=== PATIENT | male | born 1950 | race Caucasian/White ===

== ENCOUNTER 2016-09-13 08:55 | Inpatient (IN) | payer OTHER ==
[~2016-09-13] VITALS: Ht 182.9 cm; Wt 116.2 kg
--- NOTE | ~2016-09-13 | EKG ---
[place] [address] [facility] [place] [address] ELECTROCARDIOGRAM REPORT Name: GLORIA KRISHNAN MARYJO Room #: 423-1 ADM IN M.R.#: [id number] Admission: 09/13/16 Attend Phys: Shemar Varela Discharge: Date of : 50 Report #: [id number] THIS REPORT FOR: //name// [facility] ED Test Date: 2016-09-13 Test Time: 09:04:33 Pat Name: GLORIA KRISHNAN Department: Room: [facility] Gender: M Rental Clerk: PAYAM : 1950 Requested By: Lisa Adam Order Number: [id number] MD: Antwan Bauman Measurements Intervals [place] Rate: 120 P: 79 IL: 174 QRS: 29 QRSD: 84 T: 204 QT: 328 QTc: 464 Interpretive Statements Sinus tachycardia Multiple ventricular and atrial premature complexes Low voltage, extremity and precordial leads Nonspecific ST and T wave abnormality Compared to ECG 06/03/2011 10:16:38 Ventricular and atrial premature complex(es) now present Nonspecific change in ST and T-wave segments Electronically Signed On 09-16-2016 13:43:32 CDT by Antwan Bauman [email or web address] <ELECTRONICALLY SIGNED> By: Antwan Bauman MD, [facility] 09/16/16 1343 0904 0904 Antwan Bauman MD, FAC /EPI
--- NOTE | ~2016-09-13 | HC ---
[facility] [place] [address] CONSULTATION Name: GLORIA KRISHNAN Room #: 423-1 [facility] IN M.R.#: [id number] Admission: 09/13/16 Attend Phys: Shemar Varela Discharge: 09/19/16 Date of : 50 Report #: [id number] THIS REPORT FOR: //name// CC: Tonia Garcia MD DATE OF SERVICE: 09/13/2016 REFERRING PROVIDER: Shemar Varela MD. REASON FOR CONSULTATION: Pulmonary infiltrates and shortness of breath. CHIEF COMPLAINT: Edema. HISTORY OF PRESENT ILLNESS: Our group was asked to see the patient in consultation while hospitalized at [facility], well known to me from office visits and prior hospital stay. He is a pleasant 65-year-old male with a pulmonary history significant for lung cancer initially diagnosed with adenocarcinoma with a left lower lobe lobectomy. In 2011, he had evidence of recurrence. In 2016, underwent XR and subsequent chemotherapy. Recently, he has been put on Opdivo about 2 months ago. The patient has noted worsening lower extremity edema and also had significant erythema of his lower extremities, some of which has been blistering. The worsening of these symptoms prompted him to come to the emergency department for further evaluation. The patient was noted to have some changes on chest radiograph including left pleural effusions, perhaps some infiltrate in the left lung. He has been without any respiratory complaints other than some exertional dyspnea. Denies any chest pain, cough, sputum production, fever or hemoptysis. Recent CT scan done on September 11 at the [facility] with results pending. He is not really on any pulmonary medications at this time other than p.r.n. albuterol. ALLERGIES: Include LORAZEPAM, IBUPROFEN, GABAPENTIN. PAST MEDICAL HISTORY: 1. 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 2. Non-malignant colon mass, status post resection and hemicolectomy due to leak. 3. History of thyroid cancer resection. 4. Lung cancer as described above. 5. Hyperlipidemia. [facility] [address] [place] [place] [address] CONSULTATION Name: GLORIA KRISHNAN MARYJO Room #: 423-1 DIS IN M.R.#: [id number] Admission: 09/13/16 Attend Phys: Shemar Varela Discharge: 09/19/16 Date of : 50 Report #: [id number] 6. Hypothyroidism. 7. History of coronary artery disease with prior myocardial infarction and stent placement. 8. Mild COPD. OUTPATIENT MEDICATIONS: Include albuterol, aspirin, nortriptyline, Lasix, Klor-Con, Synthroid, multivitamin, vitamin D, Restasis, GenTeal, Refresh, metolazone, MiraLax, Lipitor, albuterol, Keflex, finasteride, Flomax. Of note, the patient recently stopped Lasix and been on torsemide being adjusted by nephrology. SOCIAL HISTORY: The patient is currently , lives with his , ex-smoker, quitting about 2011. No alcohol use. FAMILY HISTORY: Significant for father who of electrocution. Mother had problems with diabetes mellitus and renal failure. REVIEW OF SYSTEMS: CONSTITUTIONAL: No fevers, chills or sweats. ENT: No upper respiratory congestion, rhinorrhea or dysphagia. CARDIOVASCULAR: No history of coronary artery disease, no chest pain or palpitations. GASTROINTESTINAL: No nausea, vomiting or abdominal pain. GENITOURINARY: No dysuria, no frequency. INTEGUMENT: As described in HPI, significant lower extremity erythema and blistering. MUSCULOSKELETAL: Significant lower extremity edema with recent increased diuretics with no effect. PHYSICAL EXAMINATION: VITAL SIGNS: Afebrile, pulse 100 and regular, respiratory rate 18, blood pressure 118/70, oxygen saturation 97% on room air. GENERAL: This is a pleasant elderly male, in no distress. HEENT: Edentulous male, Mallampati 2 airway, no thrush. NECK: Supple, no lymphadenopathy. LUNGS: Markedly diminished on left two-thirds up. Well-healed left thoracotomy scar, no wheezes noted, some left-sided crackles also appreciated. CARDIOVASCULAR: Heart rate was regular. No murmurs noted. ABDOMEN: Obese, soft, nontender, no masses. EXTREMITIES: Right lower extremity had been dressed, at wound site has significant lower extremity edema and erythema. LABORATORY DATA: White blood cell count 14,000, hemoglobin 12, hematocrit 36, platelet count of 297. INR 1.0. Sodium 135, potassium 2.6, chloride 95, bicarbonate 33, BUN 48, creatinine 2.7, glucose 196, alkaline phosphatase 151. [address] [address] CONSULTATION Name: ARIELLAGLORIA MARYJO Room #: 423-1 [facility] IN M.R.#: [id number] Admission: 09/13/16 Attend Phys: Shemar Varela Discharge: 09/19/16 Date of : 50 Report #: [id number] ProBNP 1719. Albumin 2.0. Chest x-ray as described in HPI. Lower extremity venous Dopplers negative for DVT. IMPRESSION: 1. Significant lower extremity edema. 2. Erythema of lower extremities with evidence blistering, not sure if this is a drug reaction related to Opdivo or underlying cellulitis. 3. Large left pleural effusion, some concern for malignant effusion. Recent CT not available, we will obtain. 4. Possible pneumonia with the left sided infiltrate; however, this may also be post-radiation changed. Again, we would like to review old films from [facility]. 5. 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 SUGGESTIONS: 1. Await CT images. 2. Consider left thoracentesis. 3. Continue antibiotics. 4. Ask nephrology to consult and assist with diuretics selections. 5. Await CT images. 6. No strong indication for bronchodilators. We will continue his p.r.n. 7. Await cultures. 8. We will follow with you. Thank you for requesting our suggestions. <ELECTRONICALLY SIGNED> By: Bashir Salinas MD 09/27/16 1133 1830 [id number] Bashir Salinas MD /nt
--- NOTE | ~2016-09-13 | HC ---
[facility] [place] [address] CONSULTATION Name: GLORAI KRISHNAN MARYJO Room #: 423-1 ADM IN M.R.#: [id number] Admission: 09/13/16 Attend Phys: Shemar Varela Discharge: Date of : 50 Report #: [id number] THIS REPORT FOR: //name// CC: Tonia Mcgowan MD [facility] Shemar Garcia MD REASON FOR CONSULTATION: History of lung cancer. 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 He showed a healing change in 1 vertebral body, aortocaval lymph node was slightly large up to 2.8 from 2.3 cm, but another smaller mass that was slightly smaller, all in all a good report. Dr. Oro already talked with Dr. Salinas yesterday. The patient was admitted for increasing shortness of breath, had about a 40-pound weight again in recent times and is now on Lasix drip and appears to be improving. Before this, the patient has not had any fevers or chills, did have the shortness of air, not really a cough precipitated, did have bilateral leg swelling with some slight redness. The patient had no fevers or chills or sweats. No eye or ear troubles. No nausea or vomiting. No urinary difficulties. No blood in his urine or stool. Did have lower extremity swelling with some blistering and erythema. Does also have some slight weakness because that reports mentating well. FAMILY HISTORY: Father from an electrical accident and was electrocuted. Mother had troubles with diabetes and renal failure. SOCIAL HISTORY: He is a retired Marine, originally from [place], lives with his , has I think 3 children here in town, quit smoking in 2011, no alcohol. OUTPATIENT MEDICATIONS: Include albuterol, aspirin, nortriptyline, Lasix, potassium, Synthroid, vitamins including D, eyedrops, metolazone, MiraLax, Lipitor, albuterol, finasteride, Flomax and Keflex. PAST MEDICAL HISTORY: Notable for the lung cancer originally diagnosed in 2011, was stage IIA, had a left lower lobe lobectomy, had 3 cycles of adjuvant cisplatin and Alimta complicated by renal failure. In 08/2015, he had left upper lobe recurrence with some histology, had radiation therapy with Dr. Tyrell Barnes. In 04/2016, he had a PET MRI confirmation recurrence metastatic disease to bone in renal region, began Opdivo. In about 05/2006, he noted that his [address] [address] CONSULTATION Name: ARIELLAGLORIA MARYJO Room #: 423-1 ADM IN M.R.#: [id number] Admission: 09/13/16 Attend Phys: Shemar Varela Discharge: Date of : 50 Report #: [id number] PD-L1 expression was less than 1%. He received his fifth dose of chemotherapy on 08/21/2016 and then he had a recent scan showing stable and slightly improved disease. Also, has a history of interstitial nephritis probably from the cisplatin, had a nonmalignant colon cancer in the past, history of thyroid cancer resected, hyperlipidemia, hypothyroidism, history of coronary artery disease with prior infarct and stent placement, also mild COPD, also history of hernia surgery in 1971 and , right ankle surgery in the past. The thyroid cancer back in 11/2011. Shingles of the right eye in 2013, skin cancer of the nose and neck in 2013, history of colon resection, benign changes 2014. MEDICATIONS: At this time in the hospital currently include cyclosporine ophthalmologically b.i.d., levofloxacin daily, potassium chloride 40 mEq b.i.d., methylprednisolone 40 mg b.i.d., finasteride 5 mg daily, aspirin 81 daily, glimepiride 2 mg with breakfast, pantoprazole 40 daily, levothyroxine 175 mcg daily, vancomycin q. 12, fentanyl p.r.n., spironolactone 50 b.i.d., atorvastatin calcium 20 mg at bedtime, tamsulosin 0.4 mg b.i.d., Lovenox 30 mg at bedtime, insulin on a sliding scale, IV fluids with furosemide drip, zolpidem 5 mg p.r.n., ipratropium and albuterol respiratory therapy q. 4, MiraLax daily, nitroglycerin p.r.n., Zofran p.r.n. PHYSICAL EXAMINATION: GENERAL: The patient appears his stated age. VITAL SIGNS: Current height is 6 feet, which is 182.88 cm, weight 260 pounds 117.9 kilograms. Blood pressure is 126/73, O2 sat 97, respirations 18, pulse 111, temperature 98.2, he has been afebrile. MOOD: The patient is alert and pleasant. NEUROLOGIC: He is moving all extremities. HEENT: Face is symmetrical, cognitive function appears normal. LUNGS: Mostly clear, some slight rhonchi centrally that clear with easy cough. ABDOMEN: Obese. HEART: Regular rate. ABDOMEN: Enlarged lymph nodes in the supraclavicular or cervical region. EXTREMITIES: Have significant edema up to almost the knee with redness, noticed a gauze wrap on the right calf. ASSESSMENT AND PLAN: 1. Nonsmall cell lung cancer, on Opdivo since early May with recent CAT scan showing response, would like to decrease steroids as soon as able as this can interfere with immunologic response. Continue Opdivo as outpatient. 2. Weight gain and peripheral edema, most likely related to hypoalbuminemia and interstitial nephritis. Per Renal, we will continue Lasix drip. 3. Coronary artery disease. Aspirin and other medications. 4. Chronic obstructive pulmonary disease, continue aerosols. 5. Diabetes, continue to use insulin and oral agents. 6. Lipids, continue statins. [address] [address] CONSULTATION Name: SANDEEP KRISHNANORD [place] Room #: 423-1 ADM IN M.R.#: [id number] Admission: 09/13/16 Attend Phys: Shemar Varela Discharge: Date of : 50 Report #: [id number] 7. Possible cellulitis, continue to use antibiotics. We will be available for the questions. <ELECTRONICALLY SIGNED> By: Ministerio Caldwell MD 09/17/16 [id number] 2201 Ministerio Caldwell MD /nt
--- NOTE | ~2016-09-13 | HC ---
[facility] [place] [address] CONSULTATION Name: GLORIA KRISHNAN MARYJO Room #: 423-1 ADM IN M.R.#: [id number] Admission: 09/13/16 Attend Phys: Shemar Varela Discharge: Date of : 50 Report #: [id number] THIS REPORT FOR: //name// CC: Tonia Varela REASON FOR CONSULTATION: Chronic kidney disease. REASON FOR PRESENTATION: Bilateral lower extremity swelling. HISTORY OF PRESENT ILLNESS: The patient is well known to me. He is known to have chronic kidney disease, baseline creatinine in 2.5 to 3 range. He had a kidney biopsy done by one of my colleague in the practice, Dr. Garcia, was consistent with cisplatin-induced acute tubular injury. He has suffered from lung cancer and is currently undergoing some immunotherapy treatment that he is not really sure about. He has been gaining weight, in the last few days. He also reported that he had significant blistering and lower extremity swelling. He previously had repeated episodes of acute kidney injury requiring temporary dialysis. He gained about 40 pounds in the last few weeks. He has seen Dr. Garcia in the office recently. There had been an increment in his diuretic regimen with addition of metolazone. Because of the worsening of his symptoms he decided to present to the Emergency Room. Initial evaluation revealed no evidence of DVT. Past kidney function has actually stable as it could be. He does have some sort of left lung infiltrate versus effusion. This was significantly worse than his previous x-rays. He stated that he has been strict with his salt and fluid intake. MEDICATIONS: 1. Prednisone. 2. Opdivo. 3. Levothyroxine. 4. Cephalexin. 5. . 6. Metolazone. 7. Torsemide. 8. Ergocalciferol. LABORATORY VALUES: LORAZEPAM, MORPHINE, OXYCODONE. PAST MEDICAL HISTORY: Extensive including the following injury; 1. Acute kidney injury. 2. Thyroidectomy. 3. Lung cancer with left lower lobectomy. 4. Skin cancer. 5. Shingles. 6. Stage 4 chronic kidney disease. 7. Status post kidney biopsy. [facility] [address] [facility] [address] CONSULTATION Name: GLORIA KRISHNAN [place] Room #: 423-1 ADM IN M.R.#: [id number] Admission: 09/13/16 Attend Phys: Shemar Varela Discharge: Date of : 50 Report #: [id number] 8. Colon resection. 9. Lymphedema. 10. Right abdominal hernia. 11. Bronchoscopy. REVIEW OF SYSTEMS: GENERAL: No fever or chills, but significant weight gain. PULMONARY: Significant shortness of breath. CARDIOVASCULAR: No chest pain. GENITOURINARY: No frequency, no urgency. SKIN: As per the history of present illness. PHYSICAL EXAMINATION: GENERAL: The patient was alert, oriented, in no apparent distress. VITAL SIGNS: Blood pressure was 114/69. HEAD AND NECK: No jugular venous distention. SKIN: Multiple bruises. CHEST: Decreased air entry bilaterally mainly on the left side. CARDIOVASCULAR: No rub detected. ABDOMEN: Soft, nontender. LOWER EXTREMITIES: Extensive edema with cellulitic exchanges. LABORATORY VALUES: Reviewed. White blood cell count 13.9. His chemistry reviewed, the potassium of 2.6 and sodium of 135. His creatinine is baseline at 2.7, he has a very significant low albumin. ASSESSMENT, IMPRESSION AND PLAN: 1. Chronic kidney disease. 2. Cellulitis. 3. Lower extremity edema. 4. New lung infiltrates. 5. Lung cancer. 6. Hypokalemia. 7. Numerous other medical problems including hypothyroidism, diabetes mellitus. 8. From the renal perspective, the patient's kidney function seems to be stable. He suffers from hypoalbuminemia, which is complicating his volume. He also has been undergoing some immune therapy with Opdivo. He has new infiltrates versus an effusion on the left side. From the renal side, I will initiate Lasix drip. 9. Strict input and output. 10. restriction. 11. Antibiotics for his cellulitis. 12. ID consultation. 13. Pulmonary consult and consider further evaluation of his infiltrate on the left side. 14. Daily weight. 15. Avoid nephrotoxins. [facility] [address] [place] [address] CONSULTATION Name: SANDEEP KRISHNANMAURICE SIBLEY Room #: 423-1 ADM IN M.R.#: [id number] Admission: 09/13/16 Attend Phys: Shemar Varela Discharge: Date of : 50 Report #: [id number] 16. Replace potassium. 17. We will continue to follow along. <ELECTRONICALLY SIGNED> By: Ridge Garcia MD 09/14/16 0844 [id number] 0726 Royce Pratt MD /nt
--- NOTE | ~2016-09-13 | HC ---
[facility] [place] [address] CONSULTATION Name: GLORIA KRISHNAN MARYJO Room #: 423-1 ADM IN M.R.#: [id number] Admission: 09/13/16 Attend Phys: Shemar Varela Discharge: Date of : 50 Report #: [id number] THIS REPORT FOR: //name// CC: Tonia Varela DATE OF SERVICE: 09/18/2016 DATE OF ENCOUNTER: 09/18/2016. HISTORY OF PRESENT ILLNESS: The patient is a 65-year-old white male with a history of multiple medical problems including metastatic lung CA, stage IV nonsmall cell, on treatment, recent temporary dialysis that was stopped, admitted with increased swelling of bilateral lower extremities. He has had problems with ambulation and has had a significant functional decline. He has blisters over both lower extremities. He was admitted with acute respiratory failure, anasarca, [id number] systolic heart failure. He also was noted to have left lower lobe pneumonia. He was diagnosed with intravascular depletion with orthostatic hypotension and also was noted to have cellulitis of bilateral lower extremities. He has been followed closely by internal medicine, pulmonary, nephrology and oncology. He has had prior left lobectomy for his lung cancer. With his significant swelling and anasarca, nephrology has been attempting diuresis, although his creatinine is being closely monitored. It has been gradually rising to 4. He is on antibiotics with his cellulitis of the lower extremities. He has medical complexity with generalized debilitation. We are seeing him in rehabilitation medicine consultation. PAST MEDICAL HISTORY: As noted above. He has the lung cancer with left lower lobectomy in 2011, stage IV renal disease with prior kidney biopsy and dialysis. He has had chemotherapy for his lung cancer and was on active treatment, which is currently being held. He has had radiation therapy. He has been noted to have T1 involvement. History of chronic obstructive pulmonary disease; lymphedema, left side of the body, has had compression of arm and leg; colon resection 01/2015. PAST SURGICAL HISTORY: As noted above. MEDICATIONS: Please see the full medication listing. ALLERGIES: Include NEURONTIN, LORAZEPAM, MIDAZOLAM, MOTRIN, IBUPROFEN, ACETAMINOPHEN, MORPHINE, OXYCODONE. SOCIAL HISTORY: House with spouse, 2 steps in, ranch style, premorbid, standard cane ambulator. is retired and can assist. She was helping him with some of his dressing and with his toileting as he was having a hard time reaching some of his private [place] [address] CONSULTATION Name: GLORIA KRISHNAN MARYJO Room #: [facility] ADM IN M.R.#: [id number] Admission: 09/13/16 Attend Phys: Shemar Varela Discharge: Date of : 50 Report #: [id number] REVIEW OF SYSTEMS: Complains of decreased functional mobility and overall weakness. No current complaints of chest pain or shortness of breath or abdominal discomfort. Notes he has the significant swelling and edema. PHYSICAL EXAMINATION: GENERAL: A 65-year-old white male in no obvious distress. He appears somewhat stocky in appearance. VITAL SIGNS: His temperature is 97.6, pulse 100, respirations 18, blood pressure 103/65. NEUROLOGIC: He is a good historian. Facies are symmetric. Functional range of motion of both upper extremities. Strength is grade 4-/5. DTRs are trace to 1. ABDOMEN: He does have the midline abdominal incision. He does have exogenous obesity. EXTREMITIES: Lower extremities are both wrapped from the knees distally. He does have 2+ to 3+ edema proximal lower extremities, which is pitting. Strength of the lower extremities is grade 3+ to 4-out of 5. He has been min assist with sit to stand and did ambulate 70 feet min assist with a front-wheeled walker. ASSESSMENT: A 65-year-old white male with the following problem list: 1. Medical complexity with generalized debilitation. 2. Acute respiratory failure with anasarca that is improving. 3. Pbhra-cp-nytigyg systolic heart failure. 4. Lung cancer, on chemotherapy. 5. Left lower lobe pneumonia. 6. Cellulitis, bilateral lower extremities. 7. Orthostatic hypotension with intravascular depletion. 8. Bilateral lower extremity blisters with wrapping. 9. Chronic kidney disease stage 4 with attempted diuresis per nephrology. PLAN: We are considering the patient for an acute in-hospital inpatient rehabilitation stay. He has considerable medical complexity with multiple project consultant physicians that are assisting. He would be a candidate for a short stay to try to further maximize his functional independence with transfers, mobility and ADLs and also for his project consultant physicians to continue to follow while he is on rehab. Discussion with the patient and . He indicates he is going to continue working with the therapists on the acute care burgos to further improve his strength. We will be glad to follow along with you regarding his rehab therapy needs. By: [id number] Shahab Darnell MD /nt
[~2016-09-13 08:55] MED LIST: ADULT LOW DOSE81 MG PO; ALBUTEROL INHAL17 GM; ASPIR 8181 MG PO; AVELOX 400 MG400 MG; BENADRYL25 MG PO; BREO ELLIPTA 11 EACH INH; COLACE100 MG PO; ELAVIL PO; GABAPENTIN100 MG PO; GENTEAL PM OIN3.5 G1 OPHTHALMIC; KLOR-CON M2020 MEQ PO; LASIX 40 MG TAB40 M2 PO; LEVAQUIN 500 M500 M2 PO; LEVOTHYROXINE0.05 MG PO; LIDODERM 5%1 PATCH TOP; LIPITOR 20 MG T20 M1 PO; LIPITOR10 MG PO; LIPITOR40 MG PO; LISINOPRIL20 MG PO; MULTI VITAMIN1 EACH PO; MULTIVITAMINS1 EAC7 PO; NORTRIPTYLINE H25 M3 PO; OXYCODONE PO; PERCOCET 5-3251 EACH PO; PLAVIX 75 MG TA75 MG PO; PRED FORTE 1% EY5 M1 OPHTHALMIC; PREDNISONE 10 M10 M1; PREDNISONE 10 M10 MG PO; PREDNISONE 20 M20 M1 PO; REFRESH OPTIVE1 EACH OP; RESTASIS1 EACH OPHTHALMIC; SYNTHROID175 MCG PO; VENTOLIN HFA 1818 GM INH; VITAMIN D 5050000 I1 PO
[2016-09-13 09:00] VITALS: BP 124/65
[2016-09-13] MEDS ORDERED: ALBUTEROL2.5 MG/0.1 INH (09:13)
[2016-09-13] MEDS ORDERED: PROAIR HFA8.5 GM INH (09:13)
[2016-09-13] MEDS ORDERED: DUONEB 2.5-0.5 M3 ML INH (09:15)
[2016-09-13] MEDS ORDERED: KEFLEX500 MG PO (09:16)
[2016-09-13] MEDS ORDERED: PROSCAR 5MG TABL5 MG PO (09:18)
[2016-09-13] MEDS ORDERED: AMARYL2 MG PO (09:18)
[2016-09-13] MEDS ORDERED: METOLAZONE10 MG PO (09:19)
[2016-09-13] MEDS ORDERED: NORTRIPTYLINE H25 M3 PO (09:20)
[2016-09-13] MEDS ORDERED: REFRESH TEARS15 ML OPHTHALMIC (09:21)
[2016-09-13] MEDS ORDERED: POLYETHYLENE G255 GM PO (09:21)
[2016-09-13] MEDS ORDERED: FLOMAX0.4 MG PO (09:23)
[2016-09-13] MEDS ORDERED: DEMADEX20 MG PO (09:23)
[2016-09-13] MEDS ORDERED: AMBIEN 5 MG TABL5 M1 PO (09:23)
[2016-09-13 09:32] LABS: HEMATOCRIT 35.5 % (42.0-52.0); HEMOGLOBIN 11.7 gm/dL (14.0-18.0); MCH 27.1 pg (26.0-34.0); MCV 82.2 fL (80.0-100.0); PLATELET COUNT 297 thou/uL (150-400); RBC 4.32 mil/uL (4.50-6.00); RDW 17.5 % (10.5-14.5); WBC 13.9 thou/uL (4.0-11.0)
[2016-09-13 09:41] LABS: MANUAL DIFF YES
[2016-09-13 09:43] LABS: PROTIME 10.8 Seconds (9.3-11.4)
[2016-09-13 10:02] LABS: ALKALINE PHOSPHATASE 151 U/L (46-116); ANION GAP 7 mmol/L (7-16); BUN 48 mg/dL (7-18); CALCIUM 7.9 mg/dL (8.5-10.1); CHLORIDE 95 mmol/L (98-107); CO2 33 mmol/L (21-32); CREATININE 2.7 mg/dL (0.7-1.3); GLUCOSE 196 mg/dL (74-106); NT-PRO BRAIN NAT PEPTIDE 1719 pg/mL (<300); SGOT 20 U/L (15-37); SGPT 19 U/L (30-65); SODIUM 135 mmol/L (136-145); TOTAL BILIRUBIN 0.9 mg/dL (<0.1-1.0); TOTAL PROTEIN 6.3 g/dL (6.4-8.2); TROPONIN-I < 0.04 ng/mL (<0.04-0.07)
[2016-09-13 10:03] LABS: POTASSIUM 2.6 mmol/L (3.5-5.1)
[2016-09-13 10:39] LABS: ABSOLUTE NEUTROPHILS 13.1 thou/uL (1.4-8.2); TOTAL CELL COUNT 100
[2016-09-13 10:40] LABS: ANISOCYTOSIS 1+
[2016-09-13 11:13] VITALS: BP 129/71
[2016-09-13 11:20] VITALS: BP 118/70
[2016-09-13 15:52] VITALS: BP 98/58
[2016-09-13 20:00] VITALS: BP 114/61
[2016-09-14 03:09] VITALS: BP 123/62
[2016-09-14 06:05] LABS: ALBUMIN 2.1 g/dL (3.4-5.0); CALCIUM 8.2 mg/dL (8.5-10.1); CREATININE 2.8 mg/dL (0.7-1.3); PHOSPHORUS 2.6 mg/dL (2.5-4.9)
[2016-09-14 06:06] LABS: POTASSIUM 2.7 mmol/L (3.5-5.1)
[2016-09-14 07:21] VITALS: BP 114/66
[2016-09-14 15:32] VITALS: BP 96/57
[2016-09-14 15:41] LABS: CALCIUM 7.8 mg/dL (8.5-10.1); CREATININE 2.9 mg/dL (0.7-1.3)
[2016-09-14 15:42] LABS: POTASSIUM 2.9 mmol/L (3.5-5.1)
[2016-09-14 20:00] VITALS: BP 112/72
[2016-09-15 02:22] LABS: ALBUMIN 2.1 g/dL (3.4-5.0); CALCIUM 7.8 mg/dL (8.5-10.1); CREATININE 2.9 mg/dL (0.7-1.3); MAGNESIUM 1.9 mg/dL (1.8-2.4); PHOSPHORUS 2.7 mg/dL (2.5-4.9); POTASSIUM 3.4 mmol/L (3.5-5.1)
[2016-09-15 04:00] VITALS: BP 119/67
[2016-09-15 07:19] VITALS: BP 126/73
[2016-09-15 15:11] VITALS: BP 128/78
[2016-09-15 20:00] VITALS: BP 117/73
[2016-09-15 21:58] VITALS: BP 128/78
[2016-09-16 04:00] VITALS: BP 120/81
[2016-09-16 06:13] LABS: ALBUMIN 2.3 g/dL (3.4-5.0); CALCIUM 7.4 mg/dL (8.5-10.1); CREATININE 3.3 mg/dL (0.7-1.3); POTASSIUM 3.9 mmol/L (3.5-5.1)
[2016-09-16 07:25] VITALS: BP 122/82
[2016-09-16 15:05] VITALS: BP 113/63
[2016-09-16 20:00] VITALS: BP 128/94
[2016-09-17 04:30] VITALS: BP 117/67
[2016-09-17 05:42] LABS: HEMATOCRIT 36.2 % (42.0-52.0); HEMOGLOBIN 11.7 gm/dL (14.0-18.0); MCHC 32.3 g/dL (28.0-37.0); MCV 83.7 fL (80.0-100.0); RBC 4.33 mil/uL (4.50-6.00); RDW 17.4 % (10.5-14.5); WBC 15.1 thou/uL (4.0-11.0)
[2016-09-17 05:57] LABS: ALBUMIN 2.4 g/dL (3.4-5.0); CALCIUM 7.3 mg/dL (8.5-10.1); CREATININE 3.8 mg/dL (0.7-1.3); PHOSPHORUS 4.9 mg/dL (2.5-4.9)
[2016-09-17 07:32] VITALS: BP 127/86
[2016-09-17 15:49] VITALS: BP 120/73
[2016-09-17 20:15] VITALS: BP 122/70
[2016-09-18] VITALS: BP 122/70
[2016-09-18 04:09] VITALS: BP 107/64
[2016-09-18 07:32] VITALS: BP 103/65
[2016-09-18 07:43] LABS: ALBUMIN 2.4 g/dL (3.4-5.0); CALCIUM 7.1 mg/dL (8.5-10.1); MAGNESIUM 2.1 mg/dL (1.8-2.4); PHOSPHORUS 5.6 mg/dL (2.5-4.9); POTASSIUM 4.8 mmol/L (3.5-5.1)
[2016-09-18 16:45] VITALS: BP 112/73
[2016-09-18 19:45] VITALS: BP 109/69
[2016-09-19 03:48] VITALS: BP 105/61
[2016-09-19 06:13] LABS: ALBUMIN 2.2 g/dL (3.4-5.0); CALCIUM 7.3 mg/dL (8.5-10.1); CREATININE 4.3 mg/dL (0.7-1.3); POTASSIUM 3.6 mmol/L (3.5-5.1)
[2016-09-19 07:51] VITALS: BP 97/55
[2016-09-19] MEDS ORDERED: DEMADEX 2020 MG/1 TA PO (12:06)
== END 2016-09-19 15:40 | DRG 871 ==
LOC: ER 08:55 → EROBS 10:27 → 4E 10:27
PROVIDERS: Hospitalist; Internal Medicine Nephrology; Physician Assistant
DX: A41.9 Sepsis, unspecified organism (principal); I50.23 Acute on chronic systolic (congestive) heart failure; J96.00 Acute respiratory failure, unspecified whether with hypoxia or hypercapnia; J15.6 Pneumonia due to other Gram-negative bacteria; J44.0 Chronic obstructive pulmonary disease with (acute) lower respiratory infection; N18.4 Chronic kidney disease, stage 4 (severe); C34.90 Malignant neoplasm of unspecified part of unspecified bronchus or lung; L03.116 Cellulitis of left lower limb; L03.115 Cellulitis of right lower limb; E89.0 Postprocedural hypothyroidism; F32.9 Major depressive disorder, single episode, unspecified; E87.6 Hypokalemia; F41.9 Anxiety disorder, unspecified; E78.5 Hyperlipidemia, unspecified; I25.10 Atherosclerotic heart disease of native coronary artery without angina pectoris; E11.22 Type 2 diabetes mellitus with diabetic chronic kidney disease; I95.1 Orthostatic hypotension; E88.09 Other disorders of plasma-protein metabolism, not elsewhere classified; E87.70 Fluid overload, unspecified; Z79.82 Long term (current) use of aspirin; Z79.899 Other long term (current) drug therapy; Z88.5 Allergy status to narcotic agent; I25.2 Old myocardial infarction; Z88.6 Allergy status to analgesic agent; Z88.8 Allergy status to other drugs, medicaments and biological substances; Z87.891 Personal history of nicotine dependence; Z85.850 Personal history of malignant neoplasm of thyroid; Z85.828 Personal history of other malignant neoplasm of skin
CPT/HCPCS: 10183

== ENCOUNTER 2016-09-19 13:24 | Inpatient (IN) | payer OTHER ==
[~2016-09-19] VITALS: Ht 182.9 cm; Wt 112.9 kg
--- NOTE | ~2016-09-19 | PLAN ---
[facility] [place] [place] [address] REHAB UNIT PLAN OF CARE Name: GLORIA KRISHNAN MARYJO Room #: 516-1 DIS IN M.R.#: [id number] Admission: 09/19/16 Attend Phys: Shahab Darnell MD Discharge: 09/27/16 Date of : 50 Report #: [id number] THIS REPORT FOR: //name// CC: Tonia Darnell HISTORY OF PRESENT ILLNESS: The overall plan of care is based on the preadmission screen, post-admission physician evaluation and information garnered from therapy assessments. He has been contact guard with transfers with gait, high intensity contact guard with a front-wheeled walker. In occupational therapy, lower body dressing is contact guard. 1. Estimated length of stay should be fairly short, probably 7-10 days. 2. Medical prognosis is reasonably good. 3. Anticipated interventions includes the interdisciplinary acute inpatient rehabilitation team with PT, OT, rehab nursing assisting regarding medication management, skin care prophylaxis, bowel and bladder issues and nursing education. Case management is involved as well as the commercial solar sales consultant physicians. 4. Anticipated functional outcomes would be for the patient to become modified independent with functional mobility and ADLs at the walker level. 5. Discharge destination would be back to the home setting where he lives with his . 6. Expected therapy by discipline includes PT and OT 1 and 1-1/2 hours per day each five days a week throughout the duration of the rehabilitation stay. <ELECTRONICALLY SIGNED> By: Shahab Darnell MD 10/02/16 1515 0728 0913 Shahab Darnell MD /nt
--- NOTE | ~2016-09-19 | H ---
[facility] [place] [address] HISTORY AND PHYSICAL Name: GLORIA KRISHNAN [place]ARY[place] Room #: 516-1 [facility] IN M.R.#: [id number] Admission: 09/19/16 Attend Phys: Shahab Darnell MD Discharge: 09/27/16 Date of : 50 Report #: [id number] THIS REPORT FOR: //name// CC: Tonia Darnell DATE OF SERVICE: 09/20/2016 HISTORY OF PRESENT ILLNESS: This is a 65-year-old white male with history of multiple medical problems including metastatic lung cancer stage IV nonsmall cell, on treatment, recent temporary dialysis that was stopped, admitted with increasing swelling of bilateral lower extremities. He has had problems with ambulation and has had a significant functional decline. He developed some blisters over both lower extremities. He was admitted with acute respiratory failure, anasarca, qgwyx-bo-qcnhtmb systolic heart failure. He also was noted to have left lower lobe pneumonia. He was diagnosed with intravascular depletion with orthostatic hypotension and also was noted to have cellulitis of bilateral lower extremities. He has been followed closely by Internal Medicine, Pulmonary, Nephrology and Oncology. He has had a prior left lobectomy for his lung cancer. With his significant swelling and anasarca, Nephrology has been attempting diuresis. His creatinine did go up to 4.3 and is now down to 4. He has been on antibiotics with cellulitis of the lower extremities. He has medical complexity with generalized debilitation and is now admitted for acute in-hospital inpatient rehabilitation. PAST MEDICAL HISTORY: Includes the lung cancer with left lower lobectomy in 2011, stage 4 renal disease with prior kidney biopsy and dialysis. He has had chemotherapy for his lung cancer and was on active treatment, which was currently being held. He has had radiation therapy. He has been noted to have T1 involvement. History of chronic obstructive pulmonary disease, lymphedema left side of the body and has had compression of arm and leg for the lymphedema. History of colon resection, January 2015. PAST SURGICAL HISTORY: As noted above. MEDICATIONS: Please see the full medication listing. Each of these was individually reconciled upon admission to the acute inpatient rehabilitation burgos. The list includes over the counters, supplements, etc. ALLERGIES: Include NEURONTIN, LORAZEPAM, MIDAZOLAM, MOTRIN, IBUPROFEN, ACETAMINOPHEN, MORPHINE, OXYCODONE. SOCIAL HISTORY: House with spouse, 2 steps in, ranch style, premorbid standard cane ambulator. is retired and can assist. She was helping him with some of his dressing and with his toileting as he was having a hard time reaching some of his private areas with the edema. [address] [address] HISTORY AND PHYSICAL Name: ARIELLAGLORIA Room #: 516-1 [facility] IN M.R.#: [id number] Admission: 09/19/16 Attend Phys: Shahab Darnell MD Discharge: 09/27/16 Date of : 50 Report #: [id number] REVIEW OF SYSTEMS: No complaints of chest pain, shortness of breath or abdominal discomfort. He complains of overall weakness with functional mobility and decreased strength and endurance. He notes that he has the significant swelling and edema. Did not offer any complaints of swallowing difficulties. No bowel or bladder changes. PHYSICAL EXAMINATION: GENERAL: A 65-year-old white male in no obvious distress. He is a rather stocky white male. He is alert. VITAL SIGNS: His last recorded temperature is 98.6, pulse 119, respirations 18, blood pressure 110/71. HEENT: Appeared to be benign. Cranial nerves are grossly intact. Facies are symmetric. CHEST: Sounded clear to auscultation. CARDIAC: Regular rate and rhythm. ABDOMEN: Obese, bowel sounds positive, nontender. GENITOURINARY AND RECTAL: Deferred. EXTREMITIES: He has functional range of motion of both upper extremities. Strength is a grade 4-/5. Lower extremities: He does have definite edema of the proximal lower extremities 2 to 3+. He has Kerlix to the blisters daily over his lower extremities with 3-inch Jose wraps to help with the edema. Strength of the lower extremities is probably grade 3+/5 to 4-/5. Transfers are contact guard. He is ambulating a short distance contact guard in occupational therapy. Lower body dressing has been max assist prior to rehabilitation transfer. ASSESSMENT: A 65-year-old white male with the following problem list: 1. Medical complexity with generalized debilitation. 2. Acute respiratory failure with anasarca. 3. Jpeti-ud-zummirm systolic heart failure. 4. Lung cancer, on chemotherapy, currently on hold. 5. Left lower lobe pneumonia. 6. Cellulitis, bilateral lower extremities. 7. Orthostatic hypotension. 8. Bilateral lower extremities blisters with wrapping. 9. Chronic kidney disease stage 4 with attempted diuresis as per Nephrology. PLAN: The patient is admitted for acute in-hospital inpatient rehabilitation. From a postadmission physician evaluation perspective, there are no relevant changes since the preadmission screening. Please see the above review of prior and current medical and functional conditions and comorbidities. Please see the patient's previous and current functional status. As far as risk of complications, he has multiple medical comorbidities as noted above. Initial plan of care involves the interdisciplinary acute inpatient rehabilitation program. Measurable functional goals would be for him to become [address] [place] [address] HISTORY AND PHYSICAL Name: GLORIA KRISHNAN MARYJO Room #: 516-1 [facility] M.R.#: [id number] Admission: 09/19/16 Attend Phys: Shahab Darnell MD Discharge: 09/27/16 Date of : 50 Report #: [id number] independent with transfers, mobility and ADLs so that he can hopefully return back to his prior living situation. Prognosis is reasonably good with estimated length of stay probably around 7-10 days, pending progress. Potential barriers would include his multiple medical comorbidities and decreased functional status. The patient meets diagnostic criteria for an acute in-hospital inpatient rehabilitation stay. He meets medical necessity criteria with the multiple medical comorbidities as noted above. He does have the tolerance for therapies. He will have the multiple sr technical sales consultant physicians that will continue to follow while he is on the acute inpatient rehab burgos. He has appropriate discharge goals back to the home setting. <ELECTRONICALLY SIGNED> By: Shahab Darnell MD 10/02/16 1515 0815 [id number] Shahab Darnell MD /nt
--- NOTE | ~2016-09-19 | HC ---
[facility] [place] [address] CONSULTATION Name: GLORIA KRISHNAN MARYJO Room #: 516-1 [facility] IN M.R.#: [id number] Admission: 09/19/16 Attend Phys: Shahab Darnell MD Discharge: 09/27/16 Date of : 50 Report #: [id number] THIS REPORT FOR: //name// CC: Tonia Darnell DATE OF SERVICE: 09/24/2016 NEUROBEHAVIORAL STATUS EXAM ATTENDING PHYSICIAN: Shahab Darnell M.D. PROJECT COACH: Kevon Herrera, PhD CLINICAL PRESENTATION: The patient is a 65-year-old male admitted to the rehabilitation unit at [facility] for comprehensive inpatient rehabilitation program to improve functional mobility, activities of daily living and self-care and mental status secondary to metastatic lung cancer stage 4 nonsmall cell. He had recently completed a temporary dialysis and was admitted with increasing swelling of the bilateral lower extremities. The patient has an admitting assessment that includes medical complexity with generalized debilitation, acute respiratory failure with anasarca, acute on chronic systolic heart failure, lung cancer on chemotherapy currently on hold, left lower lobe pneumonia, cellulitis bilateral lower extremities, orthostatic hypotension, bilateral lower extremity blisters with wrapping and chronic kidney disease stage IV with attempted diuresis as per nephrology. The patient has had a very difficult medical history for the last 5 years. He was initially started on treatment for cancer when multiple medical complications developed. Neuropsychological consultation was requested to provide assistance in the assessment of cognitive and emotional status and to provide recommendations and services. Prior to this most recent medical event, he was living independently with his in their home. He is a high school graduate. The patient had been in the [employer] for 23 years. 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 He has three children. He lives in the [facility] and his children are within that vicinity. TECHNIQUES UTILIZED: Clinical interview, review of medical records, staff consultation and behavioral observation, mini mental status exam 2 standard version. EXAMINATION FINDINGS: The patient was alert and cooperative with the assessment. He accurately described events surrounding his admission. There is no evidence of aphasia. His thoughts are logical and goal oriented. [facility] [address] [place] [address] CONSULTATION Name: GLORIA KRISHNAN [place] Room #: 516-1 [facility] IN [facility].#: [id number] Admission: 09/19/16 Attend Phys: Shahab Darnell MD Discharge: 09/27/16 Date of : 50 Report #: [id number] evidence of thought disorder. He does not report auditory or visual hallucinations. He described his symptoms to include anxiety and depression along with diminished energy. Sleep is disrupted. Appetite appears within normal limits. He does not report difficulty with memory or word finding. His performance on the MMSE 2 brief version suggests mild impairment with a raw score of 13 and a T score of 35. He was 3/3 for initial registration, 4/5 for orientation to time and 4/[address] He was 2/3 for immediate recall of 3 items after brief delay. Performance on the MMSE 2 standard version was within normal limits with a raw score at 25/30 and score of 41. He was 3/5 for serial sevens, 2/2 for naming, 1/1 for repetition and 3/3 for comprehension. He had difficulty in copying a simple geometric design. DIAGNOSTIC IMPRESSION: Unspecified anxiety disorder with depressed mood. Mild neurocognitive disorder, unspecified. RECOMMENDATIONS: The patient will benefit from continued psychological support to assist in his adjustment. Verbal praise and complements about participating actively in his therapeutic program. The use of relaxation techniques may also be of benefit for anxiety and pain management. I will continue to follow as needed. Thank you very much for allowing me to provide the consultation on this patient. <ELECTRONICALLY SIGNED> By: Kevon Herrera, PhD 09/30/16 1601 2035 0020 Kevon Herrera, PhD /nt
[~2016-09-19 13:24] MED LIST changes: +ALBUTEROL2.5 MG/0.1 INH; +AMARYL2 MG PO; +AMBIEN 5 MG TABL5 M1 PO; +DEMADEX 2020 MG/1 TA PO; +DEMADEX20 MG PO; +DUONEB 2.5-0.5 M3 ML INH; +FLOMAX0.4 MG PO; +KEFLEX500 MG PO; +METOLAZONE10 MG PO; +POLYETHYLENE G255 GM PO; +PROAIR HFA8.5 GM INH; +PROSCAR 5MG TABL5 MG PO; +REFRESH TEARS15 ML OPHTHALMIC
[2016-09-19 16:20] VITALS: BP 113/61
[2016-09-20 05:43] LABS: ALBUMIN 2.3 g/dL (3.4-5.0); CALCIUM 7.5 mg/dL (8.5-10.1); PHOSPHORUS 6.1 mg/dL (2.5-4.9); POTASSIUM 3.8 mmol/L (3.5-5.1)
[2016-09-20 05:48] VITALS: BP 110/71
[2016-09-20 16:00] VITALS: BP 123/67
[2016-09-21 05:52] VITALS: BP 115/72
[2016-09-21 06:33] LABS: ALBUMIN 2.2 g/dL (3.4-5.0); CALCIUM 7.7 mg/dL (8.5-10.1); PHOSPHORUS 5.5 mg/dL (2.5-4.9); POTASSIUM 3.2 mmol/L (3.5-5.1)
[2016-09-21 16:00] VITALS: BP 115/62
[2016-09-22 03:33] VITALS: BP 118/75
[2016-09-22 05:36] LABS: ALBUMIN 2.2 g/dL (3.4-5.0); CALCIUM 7.6 mg/dL (8.5-10.1); CREATININE 3.7 mg/dL (0.7-1.3); PHOSPHORUS 4.9 mg/dL (2.5-4.9); POTASSIUM 3.8 mmol/L (3.5-5.1)
[2016-09-22 11:05] VITALS: BP 110/70
[2016-09-22 16:15] VITALS: BP 108/71
[2016-09-22 20:25] VITALS: BP 116/71
[2016-09-23 05:11] VITALS: BP 114/96
[2016-09-23 16:00] VITALS: BP 111/66
[2016-09-24 05:35] VITALS: BP 116/71
[2016-09-24 05:50] LABS: ALBUMIN 2.1 g/dL (3.4-5.0); CALCIUM 7.8 mg/dL (8.5-10.1); CREATININE 3.6 mg/dL (0.7-1.3); PHOSPHORUS 4.2 mg/dL (2.5-4.9)
[2016-09-24 16:00] VITALS: BP 114/56
[2016-09-24 21:41] VITALS: BP 117/67
[2016-09-25 04:58] VITALS: BP 121/74
[2016-09-25 16:00] VITALS: BP 124/66
[2016-09-26 05:25] LABS: ALBUMIN 2.2 g/dL (3.4-5.0); CALCIUM 7.8 mg/dL (8.5-10.1); CREATININE 3.5 mg/dL (0.7-1.3); PHOSPHORUS 4.1 mg/dL (2.5-4.9); POTASSIUM 4.3 mmol/L (3.5-5.1)
[2016-09-26 05:44] VITALS: BP 114/69
[2016-09-26] MEDS ORDERED: SPIRONOLACTONE25 M1 PO (11:09)
[2016-09-26 16:00] VITALS: BP 118/83
[2016-09-26 17:03] VITALS: BP 118/83
[2016-09-26 20:41] VITALS: BP 122/63
[2016-09-27 05:25] LABS: HEMATOCRIT 32.8 % (42.0-52.0); HEMOGLOBIN 10.7 gm/dL (14.0-18.0); MCH 27.1 pg (26.0-34.0); MCHC 32.6 g/dL (28.0-37.0); MCV 83.2 fL (80.0-100.0); RBC 3.94 mil/uL (4.50-6.00); RDW 17.6 % (10.5-14.5); WBC 11.1 thou/uL (4.0-11.0)
[2016-09-27 05:30] VITALS: BP 117/75
[2016-09-27 05:41] LABS: ALBUMIN 2.1 g/dL (3.4-5.0); CREATININE 3.5 mg/dL (0.7-1.3); PHOSPHORUS 3.6 mg/dL (2.5-4.9); POTASSIUM 4.3 mmol/L (3.5-5.1)
[2016-09-27 08:00] VITALS: BP 123/73
[2016-09-27] MEDS ORDERED: CEPHALEXIN 500500 M3 PO (09:35)
[2016-09-27 13:42] VITALS: BP 118/83
== END 2016-09-27 13:30 | disposition home health service (06) | DRG 947 ==
PROVIDERS: Internal Medicine Nephrology; Physical Medicine & Rehabilitation
DX: R53.81 Other malaise (principal); J96.00 Acute respiratory failure, unspecified whether with hypoxia or hypercapnia; I50.23 Acute on chronic systolic (congestive) heart failure; J18.1 Lobar pneumonia, unspecified organism; N18.4 Chronic kidney disease, stage 4 (severe); C34.90 Malignant neoplasm of unspecified part of unspecified bronchus or lung; L03.116 Cellulitis of left lower limb; L03.115 Cellulitis of right lower limb; N17.9 Acute kidney failure, unspecified; E44.0 Moderate protein-calorie malnutrition; E03.9 Hypothyroidism, unspecified; E87.6 Hypokalemia; F32.9 Major depressive disorder, single episode, unspecified; F41.9 Anxiety disorder, unspecified; G31.84 Mild cognitive impairment of uncertain or unknown etiology; R60.1 Generalized edema; J44.9 Chronic obstructive pulmonary disease, unspecified; I95.1 Orthostatic hypotension; Z68.33 Body mass index [BMI] 33.0-33.9, adult; Z88.6 Allergy status to analgesic agent; Z79.82 Long term (current) use of aspirin; Z92.3 Personal history of irradiation; Z79.899 Other long term (current) drug therapy; Z90.49 Acquired absence of other specified parts of digestive tract; Z88.8 Allergy status to other drugs, medicaments and biological substances
CPT/HCPCS: 10112